=== PATIENT | female | born 1965 | race Two or more races ===

== ENCOUNTER 2017-12-15 20:22 | Inpatient (IN) | payer BC ==
[~2017-12-15] VITALS: Ht 142.2 cm; Wt 61.0 kg
[2017-12-15 21:28] LABS: microscopic required? YES; urine erythrocyte NEGATIVE (NEGATIVE)
[2017-12-15 21:31] LABS: BASOPHIL % 0.2 % (0-2); PLATELET COUNT 251 x10^3mcL (130-400)
[2017-12-15 21:38] LABS: CHLORIDE SERUM 103 mmol/L (98-107); CREATININE SERUM 0.7 mg/dL (0.6-1.0); GFR1 > 60 mL/min; GLUCOSE SERUM 152 mg/dL (74-106); POTASSIUM SERUM 3.8 mmol/L (3.5-5.1); SODIUM SERUM 136 mmol/L (136-145)
[2017-12-15 21:43] LABS: ALBUMIN 3.6 g/dL (3.4-5.0); ALKALINE PHOSPHATASE 133 U/L (46-116); ALT/SGPT 30 U/L (14-59); AST/SGOT 34 U/L (15-37); BILIRUBIN TOTAL 0.47 mg/dL (0.20-1.00); LIPASE 193 IU/L (73-393); TOTAL PROTEIN, SERUM 7.1 g/dL (6.4-8.2)
[2017-12-16] VITALS (7 sets, daily range): BP systolic 100–131; BP diastolic 52–85
[2017-12-16 00:57] LABS: FREE T4 0.91 ng/dL (0.76-1.46)
[2017-12-16] MEDS ORDERED: SIMVASTATIN20 M1 PO (01:48)
[2017-12-16 03:53] LABS: MAGNESIUM 1.8 mg/dL (1.8-2.4); PHOSPHOROUS 3.4 mg/dL (2.5-4.9)
[2017-12-16 04:11] LABS: CHOLESTEROL/HDL RATIO 2.7
[2017-12-16 05:51] LABS: AMPHETAMINE QUAL UR NONE DETECTED (NEG <=1000)
[2017-12-16 06:53] LABS: CALCIUM 8.3 mg/dL (8.5-10.1); CARBON DIOXIDE 27.4 mmol/L (21-32); CHLORIDE SERUM 109 mmol/L (98-107); CREATININE SERUM 0.8 mg/dL (0.6-1.0); GFR1 > 60 mL/min; GLUCOSE SERUM 102 mg/dL (74-106); POTASSIUM SERUM 3.8 mmol/L (3.5-5.1); SODIUM SERUM 144 mmol/L (136-145)
[2017-12-16 07:47] LABS: BASOPHIL % 0.1 % (0-2); PLATELET COUNT 247 x10^3mcL (130-400); RED CELL DISTRIBUTION WIDTH 14.3 % (11.5-14.5)
[2017-12-17 04:55] VITALS: BP 111/69
[2017-12-17 06:12] LABS: BASOPHIL % 0.3 % (0-2); PLATELET COUNT 217 x10^3mcL (130-400); RED CELL DISTRIBUTION WIDTH 14.3 % (11.5-14.5)
[2017-12-17 06:14] LABS: CALCIUM 8.3 mg/dL (8.5-10.1); CARBON DIOXIDE 28.9 mmol/L (21-32); CHLORIDE SERUM 107 mmol/L (98-107); CREATININE SERUM 0.7 mg/dL (0.6-1.0); GFR1 > 60 mL/min; GLUCOSE SERUM 121 mg/dL (74-106); POTASSIUM SERUM 4.5 mmol/L (3.5-5.1); SODIUM SERUM 141 mmol/L (136-145)
[2017-12-17] MEDS ORDERED: LAC PO (09:10)
[2017-12-17] MEDS ORDERED: CIPRO250 MG PO (09:12)
[2017-12-17 09:44] VITALS: BP 118/71
== END 2017-12-17 15:40 | disposition home or self-care (01) | DRG 872 ==
LOC: ED 20:22 → MU 12-16 01:24 → DU 12-16 01:24 → MU 12-16 14:57
PROVIDERS: Emergency Medicine; Family Medicine
DX: A41.9 Sepsis, unspecified organism (principal); E78.00 Pure hypercholesterolemia, unspecified; Z53.29 Procedure and treatment not carried out because of patient's decision for other reasons; F41.1 Generalized anxiety disorder; E16.2 Hypoglycemia, unspecified; E78.4 Other hyperlipidemia; N30.90 Cystitis, unspecified without hematuria; K74.60 Unspecified cirrhosis of liver; K76.0 Fatty (change of) liver, not elsewhere classified; Z79.899 Other long term (current) drug therapy
CPT/HCPCS: 83880; 84439; 85378; J0696; J1885; J2405; J2543; J7030; Q0092; Q9967